=== PATIENT | male | born 1975 | race African-American/Black ===

== ENCOUNTER 2018-03-30 22:40 | Emergency (ER) | payer MEDICAID ==
[~2018-03-30] VITALS: Ht 180.3 cm; Wt 93.0 kg
[2018-03-31 00:59] VITALS: BP 116/79
== END 2018-03-31 00:59 | disposition home or self-care (01) ==
LOC: ER 22:40
DX: T78.40XA Allergy, unspecified, initial encounter (principal); X58.XXXA Exposure to other specified factors, initial encounter; F17.200 Nicotine dependence, unspecified, uncomplicated
CPT/HCPCS: 99282